=== PATIENT | female | born 1990 | race Caucasian/White ===

== ENCOUNTER 2016-11-21 15:29 | Emergency (ER) | payer OTHER ==
[~2016-11-21] VITALS: Ht 162.6 cm; Wt 127.0 kg
[~2016-11-21 15:29] MED LIST: ALLEGRA ALLERG180 MG PO; BIRTH CONTROL; FLONASE 0.05%50 MCG INH; IBUPROFEN 200200 M1 PO; IBUPROFEN 800800 M1 PO; MEDROLDOSEPACK PO; PHENERGAN 25 MG25 M1 PO; SINGULAIR 10 MG10 M1 PO; VENTOLIN HFA 1818 GM INH; ZPAK PO
[2016-11-21 17:36] LABS: ABSOLUTE NEUTROPHILS 8.9 thou/uL (1.4-8.2); BASOPHILS 0.3 % (0.0-2.0); HEMATOCRIT 40.6 % (37.0-47.0); HEMOGLOBIN 13.6 gm/dL (12.0-15.0); LYMPHOCYTES 22.8 % (24.0-44.0); MCHC 33.6 g/dL (28.0-37.0); MCV 86.5 fL (80.0-100.0); MONOCYTES 5.1 % (1.0-8.0); PLATELET COUNT 292 thou/uL (150-400); POLYS 71.8 % (36.0-66.0); RBC 4.69 mil/uL (4.20-5.00); RDW 13.5 % (10.5-14.5); WBC 12.4 thou/uL (4.0-11.0)
[2016-11-21 17:38] LABS: MANUAL DIFF NO
[2016-11-21 17:40] LABS: CALCIUM 9.4 mg/dL (8.5-10.1); POTASSIUM 3.8 mmol/L (3.5-5.1)
[2016-11-21 17:45] LABS: ALBUMIN 3.5 g/dL (3.4-5.0); TOTAL BILIRUBIN 0.3 mg/dL (<0.1-1.0); TOTAL PROTEIN 7.7 g/dL (6.4-8.2)
[2016-11-21 17:46] LABS: APTT 25.8 Seconds (24.5-32.8); PROTIME 9.8 Seconds (9.3-11.4)
[2016-11-21 18:04] LABS: URINE BILIRUBIN NEGATIVE (Negative); URINE BLOOD 2+ (Negative); URINE COLOR YELLOW; URINE GLUCOSE-RANDOM* NEGATIVE (Negative); URINE KETONES 3+ (Negative); URINE LEUKOCYTES-REFLEX NEGATIVE (Negative); URINE PROTEIN (DIPSTICK) TRACE (Negative); URINE SPECIFIC GRAVITY 1.025 (1.003-1.035); URINE UROBILINOGEN 0.2 E.U./dl (0.2-1.0)
[2016-11-21 18:09] LABS: SQUAMOUS 0-3 Few /LPF (0-3); URINE RBC 3-10 Few /HPF (0-2)
[2016-11-21 18:10] LABS: CASTS None Seen /LPF (None Seen); CRYSTALS None Seen /LPF (None Seen); URINE WBC-REFLEX 0-5 Rare /HPF (0-5)
[2016-11-21] MEDS ORDERED: DOXYCYCLINE 10100 MG PO (19:07)
[2016-11-21] MEDS ORDERED: PREDNISONE 20 M20 MG PO (19:07)
[2016-11-21] MEDS ORDERED: VENTOLIN HFA 1818 GM INH (19:07)
== END 2016-11-21 19:30 | disposition home or self-care (01) ==
LOC: ER 15:29
PROVIDERS: Physician Assistant
DX: J45.909 Unspecified asthma, uncomplicated (principal); G43.909 Migraine, unspecified, not intractable, without status migrainosus; Z90.49 Acquired absence of other specified parts of digestive tract; Z91.013 Allergy to seafood

== ENCOUNTER 2017-10-07 14:26 | Emergency (ER) | payer OTHER ==
[~2017-10-07] VITALS: Ht 165.1 cm; Wt 142.0 kg
[~2017-10-07 14:26] MED LIST changes: +DOXYCYCLINE 10100 MG PO; +PREDNISONE 20 M20 MG PO
[2017-10-07 14:48] LABS: URINE BILIRUBIN NEGATIVE (Negative); URINE BLOOD NEGATIVE (Negative); URINE CLARITY CLEAR; URINE COLOR YELLOW; URINE GLUCOSE-RANDOM* NEGATIVE (Negative); URINE KETONES NEGATIVE (Negative); URINE LEUKOCYTES 1+ (Negative); URINE NITRITE NEGATIVE (Negative); URINE PROTEIN (DIPSTICK) NEGATIVE (Negative); URINE SPECIFIC GRAVITY 1.025 (1.005-1.035); URINE UROBILINOGEN 0.2 E.U./dl (0.2-1.0)
[2017-10-07 14:53] LABS: CASTS None Seen /LPF (None Seen); CRYSTALS None Seen /LPF (None Seen); SQUAMOUS 0-3 Few /LPF (0-3); URINE RBC None Seen /HPF (0-2)
[2017-10-07 15:37] LABS: ABSOLUTE NEUTROPHILS 6.5 thou/uL (1.4-8.2); BASOPHILS 0.2 % (0.0-2.0); HEMATOCRIT 39.2 % (37.0-47.0); HEMOGLOBIN 13.3 gm/dL (12.0-15.0); LYMPHOCYTES 19.9 % (24.0-44.0); MCH 30.1 pg (26.0-34.0); MCHC 33.9 g/dL (28.0-37.0); MCV 88.6 fL (80.0-100.0); MONOCYTES 11.9 % (1.0-8.0); PLATELET COUNT 248 thou/uL (150-400); RBC 4.43 mil/uL (4.20-5.00); RDW 13.4 % (10.5-14.5); WBC 9.6 thou/uL (4.0-11.0)
[2017-10-07 15:45] LABS: CALCIUM 9.2 mg/dL (8.5-10.1); CREATININE 0.9 mg/dL (0.6-1.0)
[2017-10-07 15:50] LABS: ALBUMIN 3.8 g/dL (3.4-5.0); DIRECT BILIRUBIN 0.1 mg/dL (<0.1-0.3); TOTAL BILIRUBIN 0.8 mg/dL (<0.1-1.0); TOTAL PROTEIN 7.6 g/dL (6.4-8.2)
[2017-10-07] MEDS ORDERED: NORCO 5-325 TA1 EACH PO (17:19)
[2017-10-07] MEDS ORDERED: MACROBID 100 M100 M1 PO (17:19)
== END 2017-10-07 17:39 | disposition home or self-care (01) ==
LOC: ER 14:26
PROVIDERS: Emergency Medicine
DX: N39.0 Urinary tract infection, site not specified (principal); J02.8 Acute pharyngitis due to other specified organisms; B97.89 Other viral agents as the cause of diseases classified elsewhere; J45.909 Unspecified asthma, uncomplicated; G43.909 Migraine, unspecified, not intractable, without status migrainosus; Z90.49 Acquired absence of other specified parts of digestive tract; Z91.013 Allergy to seafood

== ENCOUNTER 2017-10-09 18:36 | Emergency (ER) | payer OTHER ==
[~2017-10-09] VITALS: Ht 165.1 cm; Wt 142.0 kg
[~2017-10-09 18:36] MED LIST changes: +MACROBID 100 M100 M1 PO; +NORCO 5-325 TA1 EACH PO
[2017-10-09 19:11] LABS: URINE BILIRUBIN NEGATIVE (Negative); URINE BLOOD NEGATIVE (Negative); URINE CLARITY CLEAR; URINE COLOR YELLOW; URINE GLUCOSE-RANDOM* NEGATIVE (Negative); URINE KETONES NEGATIVE (Negative); URINE LEUKOCYTES-REFLEX NEGATIVE (Negative); URINE NITRITE-REFLEX NEGATIVE (Negative); URINE PROTEIN (DIPSTICK) NEGATIVE (Negative); URINE UROBILINOGEN 0.2 E.U./dl (0.2-1.0)
[2017-10-09 19:51] LABS: ABSOLUTE NEUTROPHILS 4.8 thou/uL (1.4-8.2); BASOPHILS 0.1 % (0.0-2.0); HEMATOCRIT 40.4 % (37.0-47.0); HEMOGLOBIN 13.7 gm/dL (12.0-15.0); LYMPHOCYTES 23.4 % (24.0-44.0); MCV 88.2 fL (80.0-100.0); MONOCYTES 11.2 % (1.0-8.0); PLATELET COUNT 227 thou/uL (150-400); POLYS 65.3 % (36.0-66.0); RBC 4.58 mil/uL (4.20-5.00); RDW 13.5 % (10.5-14.5); WBC 7.4 thou/uL (4.0-11.0)
[2017-10-09 19:56] LABS: CALCIUM 9.4 mg/dL (8.5-10.1); CREATININE 0.9 mg/dL (0.6-1.0)
[2017-10-09 20:02] LABS: ALBUMIN 3.8 g/dL (3.4-5.0); TOTAL BILIRUBIN 0.5 mg/dL (<0.1-1.0)
[2017-10-09] MEDS ORDERED: BENTYL 20 MG TA20 M1 PO (21:10)
== END 2017-10-09 21:47 | disposition home or self-care (01) ==
LOC: ER 18:36
PROVIDERS: Physician Assistant
DX: N83.201 Unspecified ovarian cyst, right side (principal); R19.7 Diarrhea, unspecified; J45.909 Unspecified asthma, uncomplicated; G43.909 Migraine, unspecified, not intractable, without status migrainosus; Z90.49 Acquired absence of other specified parts of digestive tract; Z91.013 Allergy to seafood

== ENCOUNTER 2018-12-25 14:47 | Emergency (ER) | payer OTHER ==
[~2018-12-25] VITALS: Ht 162.6 cm; Wt 136.1 kg
[~2018-12-25 14:47] MED LIST changes: +BENTYL 20 MG TA20 M1 PO
[2018-12-25] MEDS ORDERED: CLARITIN10 MG PO (15:17)
[2018-12-25] MEDS ORDERED: PREDNISONE 20 M20 MG PO (16:23)
[2018-12-25] MEDS ORDERED: ULTRAM 50MG TAB50 MG PO (16:23)
[2018-12-25 16:38] VITALS: BP 158/72
--- NOTE | 2018-12-25 17:19 | EKG ---
[address] [address] ELECTROCARDIOGRAM REPORT Name: DARIA OLIVIER Room #: [facility]#: [id number] ������������������ Admission: 12/25/18 ������������������ Attend Phys: Discharge: 12/25/18 ������������������ Date of : 89 Report #: [id number] ����������������������������������������������������������������� [id number] THIS REPORT FOR: //name// [facility] ED Test Date: 2018-12-25 Test Time: 15:15:24 Pat Name: DARIA OLIVIER Department: Room: Gender: F Supervising Nurse: VIELKA : 1990 Requested By: Romel Pelletier Order Number: [id number] MD: Nathanael Cooper Measurements Intervals [place] Rate: 82 P: 47 OK: 139 QRS: 51 QRSD: 88 T: 30 QT: 405 QTc: 473 Interpretive Statements Sinus rhythm Normal tracing Compared to ECG 04/18/2015 00:02:15 No significant changes Electronically Signed On 12-25-2018 17:19:27 CDT by Nathanael Cooper [email or web address] ��������������������������������������������� <ELECTRONICALLY SIGNED> ���������������������������������������� By: Nathanael Cooper MD, [facility] ��������������������������������������������� 12/25/18 1719 1515 1515 Nathanael Cooper MD, FACC /EPI
== END 2018-12-25 16:39 | disposition home or self-care (01) ==
LOC: ER 14:47
DX: J45.909 Unspecified asthma, uncomplicated (principal); G43.909 Migraine, unspecified, not intractable, without status migrainosus; Z91.013 Allergy to seafood; Z90.49 Acquired absence of other specified parts of digestive tract

== ENCOUNTER 2020-10-09 09:35 | Emergency (ER) | payer OTHER ==
[~2020-10-09] VITALS: Ht 162.6 cm; Wt 145.2 kg
[~2020-10-09 09:35] MED LIST changes: +CLARITIN10 MG PO; +ULTRAM 50MG TAB50 MG PO
[2020-10-09] MEDS ORDERED: PREDNISONE 20 M20 M1 PO (12:24)
[2020-10-09] MEDS ORDERED: PROAIR HFA8.5 GM INH (12:24)
[2020-10-09 13:06] VITALS: BP 139/95
== END 2020-10-09 13:06 | disposition home or self-care (01) ==
LOC: ER 09:35
DX: U07.1 COVID-19 (principal); J45.901 Unspecified asthma with (acute) exacerbation; G43.909 Migraine, unspecified, not intractable, without status migrainosus; Z79.899 Other long term (current) drug therapy; Z91.013 Allergy to seafood